=== PATIENT | male | born 1990 | race Caucasian/White ===

== ENCOUNTER 2017-02-18 07:33 | Day surgery (SDC) | payer MEDICAID ==
[2017-02-18] MEDS ORDERED: Lactated Ringer's 500 ML IV ONE (08:03)
[2017-02-18 08:05] VITALS: BMI 26.1
[2017-02-18] MEDS ORDERED: Propofol 10 mg/ml Inj (20 ML) ONE (08:47)
[2017-02-20 15:19] VITALS: O2SAT 99
[2017-02-20 15:21] VITALS: BP 103/64; PULSE 69; RESP 15; TEMP 97.4
== END 2017-02-18 11:15 | disposition home or self-care (01) ==
LOC: H.ENDO 07:33
PROVIDERS: ATTEND Internal Medicine Gastroenterology
DX: R10.13 Epigastric pain (principal); K29.50 Unspecified chronic gastritis without bleeding

== ENCOUNTER 2018-01-20 07:15 | Day surgery (SDC) | payer MEDICAID ==
[2018-01-20] MEDS ORDERED: Lactated Ringer's 1,000 ML IV ONE (07:44)
[2018-01-20] MEDS ORDERED: Propofol 10 mg/ml Inj (20 ML) ONE (07:55)
[2018-01-20] MEDS ORDERED: Lidocaine PF 2% (5 ml) Inj (For Cardiac Arrhy) IV ONE (07:55)
[2018-01-20 09:22] VITALS: TEMP 97
[2018-01-20 09:33] VITALS: BP 113/67; PULSE 75; RESP 19; O2SAT 99
== END 2018-01-20 10:46 | disposition home or self-care (01) ==
LOC: H.ENDO 07:15
PROVIDERS: ATTEND Internal Medicine Gastroenterology
DX: K30 Functional dyspepsia (principal); K31.9 Disease of stomach and duodenum, unspecified; K29.50 Unspecified chronic gastritis without bleeding
CPT/HCPCS: 43239; 88305; J2001; J2704; J7120